=== PATIENT | female | born 1940 | race Caucasian/White ===

== ENCOUNTER 2018-12-14 11:31 | Observation (INO) | payer MEDICARE, MEDICAID ==
[2018-12-14 13:18] LABS: BASO % 0.3 % (0.0-2.0); EOS # 0.1 K/uL (0.0-0.7); EOS % 1.9 % (0.0-4.0); HEMOGLOBIN 11.4 g/dL (11.0-16.0); LYMPH # 0.6 K/uL (1.0-4.3); LYMPH % 12.8 % (20.0-40.0); MEAN CORPUSCULAR HGB CONC 33.2 g/dL (33.0-37.0); MEAN PLATELET VOLUME 9.1 fL (7.2-11.7); MONO # 0.9 K/uL (0.0-0.8); MONO % 17.7 % (0.0-10.0); NEUT # 3.3 K/uL (1.8-7.0); NEUT % 67.3 % (50.0-75.0); NRBC % 0.1 % (0.0-2.0); RBC 3.94 Mil/uL (3.80-5.20); RED CELL DISTRIBUTION WIDTH 16.9 % (11.5-14.5); WHITE BLOOD COUNT 4.9 K/uL (4.8-10.8)
[2018-12-14 13:23] LABS: MEAN CELL VOLUME 87.2 fL (81.0-99.0)
[2018-12-14 13:38] LABS: ALB/GLOB RATIO 1.5 (1.0-2.1); ALBUMIN 4.4 g/dL (3.5-5.0); ALT/SGPT 28 U/L (9-52); AST/SGOT 66 U/L (14-36); BLOOD UREA NITROGEN 13 mg/dL (7-17); GFR NON-AFRICAN AMERICAN > 60
--- NOTE | 2018-12-14 13:46 | C.PDOC ---
History Of Present Illness 78 year old female presents to ED with complaint of left- sided chest pain that moves from her back to her anterior chest for the past 5 days. Patient states that the pain is worse with movement and deep breathes. She has a PMHx of DVT. Patient denies fever and chills. Time Seen by Provider: 12/14/18 12:21 Chief Complaint (Nursing): Upper Extremity Problem/Injury History Per: Patient History/Exam Limitations: no limitations Onset/Duration Of Symptoms: Days (5) Current Symptoms Are (Timing): Still Present Quality: "Pain" Exacerbating Factor(s): Movement, Other (deep breathes) Past Medical History Reviewed: Historical Data, Nursing Documentation, Vital Signs - Medical History PMH: Arthritis, Diabetes, Deep Vein Thrombosis, HTN, Hypothyroidism, Osteoporosis Surgical History: Hernia Repair - [facility] LEFT HEART CARDIAC CATH (01/21/13) LT HEART ANGIOCARDIOGRAM (01/21/13) Family History: States: Unknown Family Hx - Social History Hx Tobacco Use: No Hx Alcohol Use: No Hx Substance Use: No - Immunization History Hx Tetanus Toxoid Vaccination: Yes Hx Influenza Vaccination: Yes Hx Pneumococcal Vaccination: Yes Review Of Systems Constitutional: Negative for: Fever, Chills Cardiovascular: Positive for: Chest Pain. Negative for: Palpitations Respiratory: Negative for: Shortness of Breath Gastrointestinal: Negative for: Nausea, Vomiting Neurological: Negative for: Weakness, Numbness, Dizziness Physical Exam - Physical Exam Appears: Non-toxic, Other (short, obese) Skin: Normal Color, Warm, Dry Head: Atraumatic, Normacephalic Eye(s): bilateral: PERRL, EOMI Neck: Supple Chest: Symmetrical, Tenderness (left axilla and under the left breast area) Cardiovascular: Rhythm Regular, No Murmur, Other (tachycardic) Respiratory: No Accessory Muscle Use, No Wheezing, Other (crackles in the base o f the left lung) Gastrointestinal/Abdominal: Bowel Sounds (normoactive), Soft, No Tenderness, No Distention, Other (obese) Extremity: No Calf Tenderness, Other (+1 pitting edema bilaterally ) Neurological/Psych: Oriented x3, Normal Speech, Normal Cognition ED Course And Treatment - Laboratory Results Result Diagrams: 12/14/18 13:14 12/14/18 13:14 Lab Results: Total Bilirubin 0.8 mg/dL (0.2-1.3) 12/14/18 13:14 AST 66 U/L (14-36) H 12/14/18 13:14 ALT 28 U/L (9-52) 12/14/18 13:14 Alkaline Phosphatase 63 U/L (38-126) 12/14/18 13:14 Total Protein 7.3 g/dL (6.3-8.3) 12/14/18 13:14 Albumin 4.4 g/dL (3.5-5.0) 12/14/18 13:14 Globulin 2.9 gm/dL (2.2-3.9) 12/14/18 13:14 Albumin/Globulin Ratio 1.5 (1.0-2.1) 12/14/18 13:14 ECG: Interpreted By Me, Viewed By Me ECG Rhythm: Sinus Tachycardia ECG Interpretation: Normal Rate From EC - Other Rad CXR X-Ray: Interpreted by Me, Viewed By Me Interpretation: IMPRESSION: No focal consolidation. Medical Decision Making Medical Decision Making: Impression: 78 year old female presents to ED with complaint of left- sided chest pain that moved from her back to her anterior chest for the past 5 days. Plan: EKG and CXR ordered for patient Labs ordered with d-dimer, troponin, and CMP Patient given Tylenol PO pmd Dr Pham 1620 pt with multipole risk factors for cardiac disease, had cath with Dr Rodriguez per reviw of old visits. ddimer neg, unlikley to be pe, no longer tachycardic. cxr neg for pna, will admit pt to Dr Callaway for chest pain. asa given. Disposition Discussed With : Samantha Callaway Doctor Will See Patient In The: Hospital - Disposition Disposition: HOSPITALIZED Disposition Time: 16:21 Condition: STABLE Forms: [facility] (Iranian) - Clinical Impression Clinical Impression: Chest pain - PA / PRIME MINISTER / Resident Statement MD/DO has reviewed & agrees with the documentation as recorded. (Bethanie Tamayo) - Scribe Statement The provider has reviewed the documentation as recorded by the Scribe (Bethanie Tamayo) All medical record entries made by the Scribe were at my direction and personally dictated by me. I have reviewed the chart and agree that the record accurately reflects my personal performance of the history, physical exam, medical decision making, and the department course for this patient. I have also personally directed, reviewed, and agree with the discharge instructions and disposition.
[2018-12-14 13:49] LABS: B-TYPE NATRIURETIC PEPTIDE 56.8 pg/mL (0-900)
--- NOTE | 2018-12-14 13:54 | RAD ---
HISTORY: chest pain COMPARISON: None available TECHNIQUE: Chest PA and lateral FINDINGS: Examination limited by habitus and hypoinflation. LUNGS: No focal consolidation. Please note that chest x-ray has limited sensitivity for the detection of pulmonary masses. PLEURA: No significant pleural effusion identified. No definite pneumothorax . CARDIOVASCULAR: Heart size appears within normal limits. Atherosclerotic calcifications of the aorta. OSSEOUS STRUCTURES: Degenerative changes of the spine. VISUALIZED UPPER ABDOMEN: Unremarkable. OTHER FINDINGS: None. IMPRESSION: No focal consolidation.
[2018-12-14 17:40] LABS: URINE BACTERIA RARE (<OCC); URINE BILIRUBIN NEGATIVE (NEGATIVE); URINE BLOOD NEGATIVE (NEGATIVE); URINE CLARITY Clear (Clear); URINE COLOR Yellow (YELLOW); URINE GLUCOSE (UA) NORMAL (Normal); URINE LEUKOCYTE ESTERASE NEG Leu/uL (Negative); URINE PROTEIN NEGATIVE (NEGATIVE); URINE UROBILINOGEN NORMAL mg/dL (0.2-1.0)
--- NOTE | 2018-12-14 19:48 | CP.PCM.HP ---
History of Present Illness - History of Present Illness History of Present Illness: 78 year old female presents to ED with complaint of left- sided chest pain that moves from her back to her anterior chest for the past 5 days. Patient states that the pain is worse with movement and deep breathes in 2012 patient had a cardiac catheterization report is unavailable Patient with a history of hypertension hypercholesterolemia osteoporosis and DVT in the past D-dimers in the emergency room were negative Present on Admission - Present on Admission Any Indicators Present on Admission: No Review of Systems - Review of Systems All systems: reviewed and no additional remarkable complaints except (atypical chest pain increases on respiration) Past Patient History - Past Social History Smoking Status: Never Smoked - CARDIAC Hx Hypertension: Yes - ENDOCRINE/METABOLIC Hx Hypothyroidism: Yes - MUSCULOSKELETAL/RHEUMATOLOGICAL Hx Arthritis: Yes Hx Osteoporosis: Yes - PSYCHIATRIC Hx Substance Use: No - SURGICAL HISTORY Hx Surgeries: Yes Hx Herniorrhaphy: Yes Hx Hysterectomy: Yes Other/Comment: ovary removal - ANESTHESIA Hx Anesthesia: Yes Meds Allergies/Adverse Reactions: Allergies Allergy/AdvReac Type Severity Reaction Status Date / Time No Known Allergies Allergy Verified 04/03/15 13:47 Physical Exam - Constitutional Appears: Well - Head Exam Head Exam: ATRAUMATIC, NORMAL INSPECTION, NORMOCEPHALIC - Eye Exam Eye Exam: EOMI, Normal appearance, PERRL - ENT Exam ENT Exam: Mucous Membranes Moist, Normal Exam - Respiratory Exam Respiratory Exam: Clear to Auscultation Bilateral, NORMAL BREATHING PATTERN - Cardiovascular Exam Cardiovascular Exam: REGULAR RHYTHM - GI/Abdominal Exam GI & Abdominal Exam: Normal Bowel Sounds, Soft. absent: Tenderness - Rectal Exam Rectal Exam: Deferred - Extremities Exam Extremities exam: Positive for: normal inspection - Back Exam Back exam: NORMAL INSPECTION - Neurological Exam Neurological exam: Alert, CN II-XII Intact, Normal Gait, Oriented x3, Reflexes Normal - Psychiatric Exam Psychiatric exam: Normal Affect, Normal Mood Results - Vital Signs Recent Vital Signs: Last Vital Signs Temp 98.4 F 12/14/18 18:35 Pulse 100 H 12/14/18 18:35 Resp 20 12/14/18 18:35 BP 149/81 12/14/18 18:35 Pulse Ox 95 12/14/18 18:35 - Labs Result Diagrams: 12/14/18 13:14 12/14/18 13:14 Labs: Laboratory Results - last 24 hr 12/14/18 12/14/18 12/14/18 13:14 13:14 14:05 WBC 4.9 RBC 3.94 Hgb 11.4 Hct 34.4 MCV 87.2 D MCH 29.0 MCHC 33.2 RDW 16.9 H Plt Count 153 MPV 9.1 Neut % (Auto) 67.3 Lymph % (Auto) 12.8 L [place] % (Auto) 17.7 H Eos % (Auto) 1.9 Baso % (Auto) 0.3 Neut # (Auto) 3.3 Lymph # (Auto) 0.6 L [place] # (Auto) 0.9 H Eos # (Auto) 0.1 Baso # (Auto) 0.0 D-Dimer, Quantitative < 200 Sodium 136 Potassium 5.0 Chloride 99 Carbon Dioxide 28 Anion Gap 14 BUN 13 Creatinine 0.6 L Est GFR ( Amer) > 60 Est GFR (Non-Af Amer) > 60 Random Glucose 150 H Calcium 9.0 Total Bilirubin 0.8 AST 66 H ALT 28 Alkaline Phosphatase 63 Troponin I < 0.0120 NT-Pro-B Natriuret Pep 56.8 Total Protein 7.3 Albumin 4.4 Globulin 2.9 Albumin/Globulin Ratio 1.5 Urine Color Urine Clarity Urine pH Ur Specific [place] Urine Protein Urine Glucose (UA) Urine Ketones Urine Blood Urine Nitrate Urine Bilirubin Urine Urobilinogen Ur Leukocyte Esterase Urine WBC (Auto) Urine RBC (Auto) Urine Bacteria 12/14/18 16:41 WBC RBC Hgb Hct MCV MCH MCHC RDW Plt Count MPV Neut % (Auto) Lymph % (Auto) [place] % (Auto) Eos % (Auto) Baso % (Auto) Neut # (Auto) Lymph # (Auto) [place] # (Auto) Eos # (Auto) Baso # (Auto) D-Dimer, Quantitative Sodium Potassium Chloride Carbon Dioxide Anion Gap BUN Creatinine Est GFR ( Amer) Est GFR (Non-Af Amer) Random Glucose Calcium Total Bilirubin AST ALT Alkaline Phosphatase Troponin I NT-Pro-B Natriuret Pep Total Protein Albumin Globulin Albumin/Globulin Ratio Urine Color Yellow Urine Clarity Clear Urine pH 7.0 Ur Specific [place] 1.008 Urine Protein Negative Urine Glucose (UA) Normal Urine Ketones Negative Urine Blood Negative Urine Nitrate Negative Urine Bilirubin Negative Urine Urobilinogen Normal Ur Leukocyte Esterase Neg Urine WBC (Auto) < 1 Urine RBC (Auto) < 1 Urine Bacteria Rare Assessment & Plan (1) HTN (hypertension) Status: Acute (2) Chest pain Status: Acute (3) Diabetes Status: Acute
[2018-12-14] MEDS: Enoxaparin 30 mg Syringe SC SCH (22:07)
[2018-12-14] MEDS: (Novolin R) Insulin Human Regular 100 units/ml vial SC SCH (22:07)
[2018-12-14] MEDS: Insulin Detemir 100 units/ml Vial (Levemir) SC SCH (22:07)
[2018-12-15 00:35] LABS: CK-MB 0.66 ng/mL (0.0-3.38)
[2018-12-15] MEDS: Levothyroxine 50 MCG TAB PO SCH (06:02)
[2018-12-15 07:45] LABS: CK-MB 0.62 ng/mL (0.0-3.38)
[2018-12-15] MEDS: (Novolin R) Insulin Human Regular 100 units/ml vial SC SCH ×4 (07:46→21:35)
[2018-12-15] MEDS: Enoxaparin 30 mg Syringe SC SCH ×2 (10:16→21:30)
--- NOTE | 2018-12-15 12:26 | CP.PCM.PN ---
Subjective - Date & Time of Evaluation Date of Evaluation: 12/15/18 Time of Evaluation: 12:25 - Subjective Subjective: NO FURTHER CP VS STABLE P/E UNCHANGED TNI NEG 2 TIMES CONT OBSERVATION Objective - Vital Signs/Intake and Output Vital Signs (last 24 hours): Temp Pulse Resp BP Pulse Ox 97.9 F 90 18 153/82 H 96 12/15/18 07:00 12/15/18 07:00 12/15/18 07:00 12/15/18 07:00 12/15/18 07:00 - Medications Medications: Current Medications Enoxaparin Sodium (Lovenox) 30 mg SC Q12 [facility] Last Admin: 12/15/18 10:16 Dose: 30 mg Insulin Detemir (Levemir) 20 unit SC HS [facility] Last Admin: 12/14/18 22:07 Dose: 20 units Insulin Human Regular (Novolin R) 0 unit SC ACHS [facility]; Protocol Last Admin: 12/15/18 07:46 Dose: Not Given Levothyroxine Sodium (Synthroid) 50 mcg PO DAILY@0630 [facility] Last Admin: 12/15/18 06:02 Dose: 50 mcg Lisinopril (Zestril) 20 mg PO DAILY [facility] Last Admin: 12/15/18 10:17 Dose: 20 mg - Labs Labs: 12/14/18 13:14 12/14/18 13:14 Assessment and Plan (1) HTN (hypertension) Status: Acute (2) Chest pain Status: Acute (3) Diabetes Status: Acute
[2018-12-15] MEDS ORDERED: Oxycodone/Acetaminophen 5/325 mg Tab PO PRN (13:02)
[2018-12-15] MEDS: Lidocaine 5% Patch TD SCH (13:09)
[2018-12-15] MEDS ORDERED: Oxycodone/Acetaminophen 5/325 mg Tab PO ONE (13:11)
[2018-12-15 17:54] VITALS: RESP 20
--- NOTE | 2018-12-15 20:44 | CARD ---
APPROVED REPORT Date of service: 12/14/2018 EKG Measurement Heart [id number] NM [id number] <Conclusion> Sinus tachycardia Otherwise normal ECG
[2018-12-15] MEDS: Insulin Detemir 100 units/ml Vial (Levemir) SC SCH (21:30)
[2018-12-16] MEDS: Levothyroxine 50 MCG TAB PO SCH (06:04)
[2018-12-16 07:50] VITALS: BP 170/80; TEMP 98.7; O2SAT 94
[2018-12-16] MEDS: (Novolin R) Insulin Human Regular 100 units/ml vial SC SCH ×2 (08:05→13:26)
[2018-12-16] MEDS: Enoxaparin 30 mg Syringe SC SCH (09:24)
[2018-12-16] MEDS: Lidocaine 5% Patch TD SCH (09:25)
--- NOTE | 2018-12-16 12:22 | CP.PCM.DIS ---
Provider - Provider Date of Admission: 12/14/18 16:16 Attending physician: Samantha Callaway MD Time Spent in preparation of Discharge (in minutes): 30 Diagnosis - Discharge Diagnosis (1) HTN (hypertension) Status: Acute (2) Chest pain Status: Acute (3) Diabetes Status: Acute Hospital Course - Lab Results Lab Results: Most Recent Lab Values WBC 4.9 K/uL (4.8-10.8) 12/14/18 13:14 RBC 3.94 Mil/uL (3.80-5.20) 12/14/18 13:14 Hgb 11.4 g/dL (11.0-16.0) 12/14/18 13:14 Hct 34.4 % (34.0-47.0) 12/14/18 13:14 MCV 87.2 fL (81.0-99.0) D 12/14/18 13:14 MCH 29.0 pg (27.0-31.0) 12/14/18 13:14 MCHC 33.2 g/dL (33.0-37.0) 12/14/18 13:14 RDW 16.9 % (11.5-14.5) H 12/14/18 13:14 Plt Count 153 K/uL (130-400) 12/14/18 13:14 MPV 9.1 fL (7.2-11.7) 12/14/18 13:14 Neut % (Auto) 67.3 % (50.0-75.0) 12/14/18 13:14 Lymph % (Auto) 12.8 % (20.0-40.0) L 12/14/18 13:14 [place] % (Auto) 17.7 % (0.0-10.0) H 12/14/18 13:14 Eos % (Auto) 1.9 % (0.0-4.0) 12/14/18 13:14 Baso % (Auto) 0.3 % (0.0-2.0) 12/14/18 13:14 Neut # (Auto) 3.3 K/uL (1.8-7.0) 12/14/18 13:14 Lymph # (Auto) 0.6 K/uL (1.0-4.3) L 12/14/18 13:14 [place] # (Auto) 0.9 K/uL (0.0-0.8) H 12/14/18 13:14 Eos # (Auto) 0.1 K/uL (0.0-0.7) 12/14/18 13:14 Baso # (Auto) 0.0 K/uL (0.0-0.2) 12/14/18 13:14 D-Dimer, Quantitative < 200 ng/mlDDU (0-243) 12/14/18 14:05 Sodium 136 mmol/L (132-148) 12/14/18 13:14 Potassium 5.0 mmol/L (3.6-5.2) 12/14/18 13:14 Chloride 99 mmol/L (98-107) 12/14/18 13:14 Carbon Dioxide 28 mmol/L (22-30) 12/14/18 13:14 Anion Gap 14 (10-20) 12/14/18 13:14 BUN 13 mg/dL (7-17) 12/14/18 13:14 Creatinine 0.6 mg/dL (0.7-1.2) L 12/14/18 13:14 Est GFR ( Amer) > 60 12/14/18 13:14 Est GFR (Non-Af Amer) > 60 12/14/18 13:14 POC Glucose (mg/dL) 289 mg/dL (65-110) H 12/16/18 11:51 Random Glucose 150 mg/dL (65-105) H 12/14/18 13:14 Calcium 9.0 mg/dl (8.6-10.4) 12/14/18 13:14 Total Bilirubin 0.8 mg/dL (0.2-1.3) 12/14/18 13:14 AST 66 U/L (14-36) H 12/14/18 13:14 ALT 28 U/L (9-52) 12/14/18 13:14 Alkaline Phosphatase 63 U/L (38-126) 12/14/18 13:14 Total Creatine Kinase 105 U/L (30-135) 12/15/18 06:57 CK-MB (Mass) 0.62 ng/mL (0.0-3.38) 12/15/18 06:57 Troponin I < 0.0120 ng/mL (0.00-0.120) 12/15/18 06:57 NT-Pro-B Natriuret Pep 56.8 pg/mL (0-900) 12/14/18 13:14 Total Protein 7.3 g/dL (6.3-8.3) 12/14/18 13:14 Albumin 4.4 g/dL (3.5-5.0) 12/14/18 13:14 Globulin 2.9 gm/dL (2.2-3.9) 12/14/18 13:14 Albumin/Globulin Ratio 1.5 (1.0-2.1) 12/14/18 13:14 Urine Color Yellow (YELLOW) 12/14/18 16:41 Urine Clarity Clear (Clear) 12/14/18 16:41 Urine pH 7.0 (5.0-8.0) 12/14/18 16:41 Ur Specific [place] 1.008 (1.003-1.030) 12/14/18 16:41 Urine Protein Negative mg/dL (NEGATIVE) 12/14/18 16:41 Urine Glucose (UA) Normal mg/dL (Normal) 12/14/18 16:41 Urine Ketones Negative mg/dL (NEGATIVE) 12/14/18 16:41 Urine Blood Negative (NEGATIVE) 12/14/18 16:41 Urine Nitrate Negative (NEGATIVE) 12/14/18 16:41 Urine Bilirubin Negative (NEGATIVE) 12/14/18 16:41 Urine Urobilinogen Normal mg/dL (0.2-1.0) 12/14/18 16:41 Ur Leukocyte Esterase Neg [place]/uL (Negative) 12/14/18 16:41 Urine WBC (Auto) < 1 /hpf (0-5) 12/14/18 16:41 Urine RBC (Auto) < 1 /hpf (0-3) 12/14/18 16:41 Urine Bacteria Rare (<OCC) 12/14/18 16:41 - Hospital Course Hospital Course: 78 year old female presents to ED with complaint of left- sided chest pain that moves from her back to her anterior chest for the past 5 days. Patient states that the pain is worse with movement and deep breathes in 2012 patient had a cardiac catheterization report is unavailable Patient with a history of hypertension hypercholesterolemia osteoporosis and DVT in the past D-dimers in the emergency room were negative TNI NEG NO FURTHER CP POLYPHARMACY WAS ADDRESSED PT D/C WILL DO OUT PT CARDIAC W/U Discharge Exam - Head Exam Head Exam: ATRAUMATIC, NORMAL INSPECTION, NORMOCEPHALIC Discharge Plan - Follow Up Plan Condition: STABLE Disposition: HOME/ ROUTINE
[2018-12-16 15:58] VITALS: PULSE 103
== END 2018-12-16 17:05 | disposition home or self-care (01) ==
LOC: C.ER 11:31 → C.9E 16:16 → C.6T 17:01
PROVIDERS: ADMIT Internal Medicine Cardiovascular Disease; ATTEND Internal Medicine Cardiovascular Disease
DX: I10 Essential (primary) hypertension (principal); R07.9 Chest pain, unspecified; E03.9 Hypothyroidism, unspecified; E11.9 Type 2 diabetes mellitus without complications
CPT/HCPCS: 36415; 71046; 80053; 81001; 82948; 83880; 84484; 85025; 85378; 93005; 97116; 97162; 99285; G0378; G8978; G8979; J1650